=== PATIENT | male | born 1970 | race Caucasian/White ===

== ENCOUNTER 2017-06-06 11:02 | Emergency (ER) | payer OTHER ==
[2017-06-06 11:17] VITALS: BP 150/91; PULSE 91; TEMP 98; BMI 34.0
--- NOTE | 2017-06-06 11:52 | PDOC ---
History of Present Illness - General Chief Complaint: Injury Stated Complaint: INJURY, FALL Time Seen by Provider: 06/06/17 11:27 History Source: Patient Exam Limitations: No Limitations - History of Present Illness Initial Comments: 06/06/17 11:47 46 yr male with injury to the right shoulder fell today at work, missed 3 steps and fell. Pt has history of labrum tear to the right shoulder one year ago Past History - Past Medical History Allergies/Adverse Reactions: Allergies Allergy/AdvReac Type Severity Reaction Status Date / Time Penicillins Allergy Rash Verified 06/06/17 11:14 COPD: No HTN: Yes - Immunization History Immunization Up to Date: Yes - Suicide/Smoking/Psychosocial Hx Smoking Status: No Smoking History: Never smoked Number of Cigarettes Smoked Daily: 0 *Physical Exam - Vital Signs Last Vital Signs Temp Pulse Resp BP Pulse Ox 98.0 F 91 H 20 150/91 97 06/06/17 11:15 06/06/17 11:15 06/06/17 11:15 06/06/17 11:15 06/06/17 11:15 - Physical Exam General Appearance: Yes: Nourished, Appropriately Dressed HEENT: positive: EOMI, ANDREI Neck: positive: Supple Respiratory/Chest: positive: Lungs Clear, Normal Breath Sounds Cardiovascular: positive: Regular Rhythm, Regular Rate Musculoskeletal: positive: Normal Inspection Extremity: positive: Normal Capillary Refill, Normal Range of Motion, Tender ( anterior right shoulder nv intact ). negative: Swelling, Inflammation Integumentary: positive: Normal Color, Dry, Warm Neurologic: positive: Fully Oriented, Alert, Normal Mood/Affect, Normal Response , Motor Strength 5/5 ED Treatment Course - RADIOLOGY Radiology Studies Ordered: Category Date Time Status SHOULDER-RIGHT [RAD] Stat Radiology 06/06/17 11:28 Taken Medical Decision Making - Medical Decision Making 06/06/17 12:08 cc: fell injured right shoulder pt has history of labral tear one year ago pt has neg numbness or tingling pt has FROM of the right shoulder with minimal pain with abduction to the anterior aspect of the shoulder 06/06/17 12:10 pt has his own orthopedist that he will follow up with. 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 apply ice every 2hrs for 20 minutes for the next 2 days take advil or motrin as needed for any pain - Post Discharge Activity Forms/Work/School Notes: Back to Work
== END 2017-06-06 11:53 | disposition home or self-care (01) ==
LOC: JERFT 11:02
DX: S49.81XA Other specified injuries of right shoulder and upper arm, initial encounter (principal); W10.8XXA Fall (on) (from) other stairs and steps, initial encounter; Y93.89 Activity, other specified; Y92.29 Other specified public building as the place of occurrence of the external cause; Y99.0 Civilian activity done for income or pay
CPT/HCPCS: 73030-TC-RT-FY; 99281-25

== ENCOUNTER 2022-12-27 18:43 | Emergency (ER) | payer OTHER ==
[2022-12-27 18:59] VITALS: BP 152/89; PULSE 73; RESP 18; TEMP 98; BMI 34.0
[2022-12-27] MEDS ORDERED: KETOROLAC TROMETHAMINE 30 MG/1 ML VIAL IM ONE (19:46)
[2022-12-27] MEDS ORDERED: KETOROLAC TROMETHAMINE 30 MG/1 ML VIAL ONE (19:48)
== END 2022-12-27 20:46 | disposition home or self-care (01) ==
LOC: JERFT 18:43 → JER 18:43 → JERFT 20:46
PROC: 3E0233Z Introduction of Anti-inflammatory into Muscle, Percutaneous Approach (ICD-10-PCS; principal; 2022-12-27)
DX: S99.922A Unspecified injury of left foot, initial encounter (principal); M79.672 Pain in left foot; W17.89XA Other fall from one level to another, initial encounter; Y93.39 Activity, other involving climbing, rappelling and jumping off; Y99.0 Civilian activity done for income or pay
CPT/HCPCS: 73630-TC-LT; 99285-25

== ENCOUNTER 2023-07-13 09:55 | Emergency (ER) | payer OTHER ==
[2023-07-13 12:17] VITALS: BP 130/78; PULSE 68; RESP 17; TEMP 97.7; BMI 34.9
== END 2023-07-13 10:58 | disposition home or self-care (01) ==
LOC: JERFT 09:55
DX: M25.512 Pain in left shoulder (principal); S46.912A Strain of unspecified muscle, fascia and tendon at shoulder and upper arm level, left arm, initial encounter; X50.9XXA Other and unspecified overexertion or strenuous movements or postures, initial encounter
CPT/HCPCS: 73030-TC-LT-FY; 99283-25